=== PATIENT | male | born 1980 | race Hispanic/Latino ===

== ENCOUNTER 2017-04-26 12:06 | Emergency (ER) | payer OTHER ==
[~2017-04-26] VITALS: Ht 175.3 cm; Wt 120.0 kg
[2017-04-26] MEDS ORDERED: ADDE20CA3 PO (12:13)
[2017-04-26] MEDS ORDERED: ONDANSETRON 4MG/2ML VIAL (J2405) IV ONE (12:45)
[2017-04-26] MEDS ORDERED: MORPHINE 4 MG/ML 1ML SYRINGE IV ONE ×2 (12:45→13:45)
--- NOTE | 2017-04-26 13:51 | REP ---
Clinical: Trauma. Technique: AP, lateral views of the left knee. Findings: The osseous structures and joint spaces are intact and there is no evidence for acute fracture or dislocation. Mild degenerative changes includes creased sclerosis to the medial tibial surface with mild joint space narrowing. Impression: Mild medial joint space narrowing and degenerative change. No acute fracture or dislocation. Signed by Dl Grier MD 04/26/2017 01:42 P
--- NOTE | 2017-04-26 13:52 | REP ---
Clinical: Trauma. Technique: AP, lateral left tibia / fibula. Findings: The osseous structures and joint spaces are intact and there is no evidence for acute fracture or dislocation. Surrounding soft tissues are unremarkable. No subcutaneous emphysema or radiodense foreign body. Impression: Age appropriate examination . No acute fracture or dislocation. Signed by Dl Grier MD 04/26/2017 01:43 P
--- NOTE | 2017-04-26 13:53 | REP ---
Clinical: Trauma. Technique: Neutral and frog lateral views of the left femur. Findings: No acute fracture dislocation. Skeletal structures, joint spaces, and surrounding soft tissues appear normal. Impression: No acute fracture dislocation. Signed by Dl Grier MD 04/26/2017 01:44 P
--- NOTE | 2017-04-26 13:54 | REP ---
Clinical: Trauma. Technique: Single AP view of the pelvis. Findings: No acute fracture dislocation. Skeletal structures, joint spaces, and surrounding soft tissues are relatively normal for age. Mild symmetric degenerative changes of the hip cannot be excluded. Impression: No acute fracture dislocation. Signed by Dl Grier MD 04/26/2017 01:45 P
--- NOTE | 2017-04-26 13:57 | REP ---
Clinical: Trauma. Left hip pain. Technique: Axial noncontrast images of the pelvis with coronal and sagittal re-formations. Findings: The osseous structures of the pelvis are intact. There is no evidence for acute fracture or dislocation. The bilateral sacroiliac joints are normal. The bilateral hip joints demonstrate mild degenerative changes including subtle increase sclerosis to the acetabular roof with minimal joint space narrowing and subtle marginal spurring. No acute fracture or dislocation. Surrounding soft tissues are unremarkable and without subcutaneous infiltration or hematoma to suggest soft tissue injury. Visualized portions of the small large bowel are unremarkable. Pelvis demonstrates normal bladder and age appropriate prostate/seminal vesicles. No pelvic fluid. No free air. No obvious adenopathy. Abdominal aorta and vasculature appears normal. Impression: Normal noncontrast CT of the pelvis. No evidence for acute fracture or dislocation. Signed by Dl Grier MD 04/26/2017 01:48 P
[2017-04-26 16:28] VITALS: BP 149/80
[2017-04-26] MEDS ORDERED: HYDR-3713 PO (16:42)
[2017-04-26] MEDS ORDERED: PERCOCET 5MG/325MG TAB PO ONE (17:00)
--- NOTE | 2017-04-28 16:03 | REPUSA ---
HISTORY: -TRAUMA WITH PAIN A AND SWELLING XRAY REPORT SENT. Comparison is made to a report of left knee films dated 04/26/17. TECHNIQUE: Multisequence, multiplanar MRI imaging of left knee without contrast. FINDINGS: There is bone marrow edema posteriorly in the medial tibial plateau consistent with bone bruise. No bony fracture line is seen. No joint space instability is seen. There is a complete complex tear in the posterior horn of the medial meniscus extending obliquely to the inferior articular margin and more posteriorly a vertical tear extending from the superior to the inferior articular margin. This is best seen on the T2 STIR sagittal sequence series 4, images 5-9. There is also a macerated tear at the posterior horn of the lateral meniscus at the inferior articu lar margins seen on series 4, image 20. The same T2, STIR sagittal sequence demonstrates suspected complete tear in the posterior anterior cr uciate ligament with a downward slope at the posterior margin of the ligament and edema, seen on seri es 4, images 13-14. The posterior cruciate ligament is intact but buckled. There appears to be a sl ight anterior translation of the tibia upon the femur. There is excessive edema over the medial collateral ligamentous region with complete grade 3 tear of the medial collateral ligament, best seen on the coronal sequence, series 7, images 8-15. There is a lso excessive edema with a complete grade 3 tear at the superior margin of the lateral collateral lig aments, best seen on series 7, images 11-18. The quadriceps tendon and infrapatellar tendon are intact. There is a large joint space effusion. Articular cartilage is intact. There is a focal tear at the attachment of the lateral head of the gastrocnemius tendon at the title clerk ior distal femur, best seen on the T2 STIR sagittal sequence series 4, images 18-22. There is also edema in the proximal soleus muscle consistent with muscular strain. There is edema at the distal bi ceps femoris muscular tendinous junction also suspicious for partial tendon tear and muscular strain. There is prominent soft tissue contusion over the entire lateral margin of the left knee. IMPRESSION: 1. Bone marrow bruising at the medial posterior tibial plateau. No bony fracture line i s seen and no dislocation is seen. 2. Complicated complex tear at the posterior horn of the medial meniscus and macerated tear at the p osterior horn of the lateral meniscus. 3. Suspected complete tear at the posterior superior margin of the anterior cruciate ligament. Post erior cruciate ligament is intact but buckled. There is also anterior translation of the tibia from the femur. 4. Complete grade 3 tear involving the medial collateral ligament with overlying soft tissue contus ion at the medial margin of the knee. 5. Extensive complete grade 3 tear involving the lateral collateral ligament with extensive contusio n of the soft tissues of the lateral knee and with suspected muscular tendinous tear and strains seen at the lateral head of the gastrocnemius muscle, soleus muscle, and distal attachment of the biceps femoris muscle. 6. Large joint space effusion with intact cartilage. Intact quadriceps and infrapatellar tendons.
== END 2017-04-26 16:54 | disposition home or self-care (01) ==
LOC: M ED 12:06 → EDBD 12:06 → M ED 16:54
DX: S83.412A Sprain of medial collateral ligament of left knee, initial encounter (principal); W11.XXXA Fall on and from ladder, initial encounter; Y92.89 Other specified places as the place of occurrence of the external cause; Y93.89 Activity, other specified; Y99.0 Civilian activity done for income or pay
CPT/HCPCS: 72190; 72192; 73552; 73560; 73590; 73721; 96374; 96375; 96376; 99284; J2405

== ENCOUNTER → 2018-01-02 | Outpatient (CLI) | payer OTHER | LOC: M CARPUL 08:21 | DX: E11.8 Type 2 diabetes mellitus with unspecified complications (principal) | CPT/HCPCS: 93306 ==

== ENCOUNTER 2021-06-10 10:18 | Emergency (ER) | payer OTHER ==
[~2021-06-10] VITALS: Ht 175.3 cm; Wt 114.4 kg
[~2021-06-10 10:18] MED LIST: ADDE20CA3 PO; HYDR-3713 PO
[2021-06-10] MEDS ORDERED: LANTINJ4 SC ×2 (10:26→10:30)
[2021-06-10] MEDS ORDERED: BACL10TA2 PO (10:30)
[2021-06-10] MEDS ORDERED: LOPI600T PO (10:30)
[2021-06-10] MEDS ORDERED: OXYC-1 PO (10:30)
[2021-06-10] MEDS ORDERED: NESI25TA PO (10:30)
[2021-06-10] MEDS ORDERED: CELE1CAP4 PO (10:30)
[2021-06-10] MEDS ORDERED: FAMO40TA3 PO (10:30)
[2021-06-10] MEDS ORDERED: METO1TAB33 PO (10:30)
[2021-06-10] MEDS ORDERED: ROSU40TA4 PO (10:30)
[2021-06-10] MEDS ORDERED: LISI10TA22 PO (10:30)
[2021-06-10] MEDS ORDERED: OMEP-312 PO (10:30)
[2021-06-10] MEDS ORDERED: JARD1TAB3 PO (10:30)
[2021-06-10 13:01] VITALS: BP 138/73
== END 2021-06-10 13:20 | disposition home or self-care (01) ==
LOC: M ED 10:18
DX: M46.1 Sacroiliitis, not elsewhere classified (principal); E11.9 Type 2 diabetes mellitus without complications; Z79.899 Other long term (current) drug therapy; Z79.4 Long term (current) use of insulin; F17.210 Nicotine dependence, cigarettes, uncomplicated

== ENCOUNTER → 2022-10-12 | Outpatient (REF) | payer OTHER ==
[~2022-10-12] MED LIST changes: +BACL10TA2 PO; +CELE1CAP4 PO; +FAMO40TA3 PO; +JARD1TAB3 PO; +LANTINJ4 SC; +LISI10TA22 PO; +LOPI600T PO; +METO1TAB33 PO; +NESI25TA PO; +OMEP-312 PO; +OXYC-1 PO; +ROSU40TA4 PO
== END ==
LOC: M SFHCPLAZ 16:57
PROVIDERS: ATTEND Physician Assistant
DX: R05.1 Acute cough (principal)
CPT/HCPCS: 87428; 87635; G0463

== ENCOUNTER → 2022-11-10 | Outpatient (CLI) | payer OTHER ==
[2022-11-10 17:22] LABS: HEMATOCRIT 44.2 % (42.0-52.0); HEMOGLOBIN 14.7 g/dl (13.5-17.5); MEAN CORPUSCULAR HEMOGLOBIN 32.6 pg (27.0-33.0); MEAN CORPUSCULAR HGB CONC 33.3 g/dl (32.0-36.5); PLATELET COUNT, AUTOMATED 191 10^3/uL (150-450); RED BLOOD COUNT 4.51 10^6/uL (4.30-6.10); WHITE BLOOD COUNT 8.6 10^3/uL (4.0-10.0)
[2022-11-10 17:46] LABS: CREATININE, URINE 37.8 MG/DL
[2022-11-10 17:47] LABS: C REACTIVE PROTEIN QUANTITATIV < 0.40 MG/DL (<1.0)
[2022-11-10 18:16] LABS: ALBUMIN 4.1 G/DL (3.2-5.2); ALKALINE PHOSPHATASE 75 U/L (46-116); ALT/SGPT 23 U/L (7.0-40); AST/SGOT 15 U/L (<34); BILIRUBIN,TOTAL 0.4 MG/DL (0.3-1.2); BLOOD UREA NITROGEN 14 MG/DL (9-23); CALCIUM LEVEL 8.9 MG/DL (8.5-10.1); CARBON DIOXIDE LEVEL 30 MMOL/L (20-31); CHLORIDE LEVEL 100 MMOL/L (98-107); CHOLESTEROL LEVEL 111 MG/DL (<200); CHOLESTEROL RISK RATIO 3.72 (<5); CREATININE FOR GFR 0.58 MG/DL (0.70-1.30); FREE T4 1.18 NG/DL (0.89-1.76); GLOMERULAR FILTRATION RATE > 60.0 (>60); GLUCOSE, FASTING 192 MG/DL (60-100); HDL CHOLESTEROL 29.8 MG/DL (>40); NON-HDL-C 81 MG/DL; POTASSIUM SERUM 4.3 MMOL/L (3.5-5.1); SODIUM LEVEL 139 MMOL/L (136-145); THYROID STIMULATING HORMONE 1.205 uIU/ML (0.55-4.78); TOTAL 25(OH) VITAMIN D 28.8 NG/ML (20.0-100.0); TOTAL PROTEIN 7.3 G/DL (5.7-8.2); TRIGLYCERIDES LEVEL 420 MG/DL (<150); VITAMIN B12 LEVEL 533 PG/ML (211-911)
[2022-11-10 18:53] LABS: MALB URINE SIEMENS < 3.0 MG/DL; MAU/CREAT RATIO 7.9 MCG/MG (0.0-30.0)
[2022-11-12 14:08] LABS: INSULIN LEVEL 64.6 uIU/mL (2.6-24.9)
== END ==
LOC: M PLALAB 15:50
PROVIDERS: ATTEND Internal Medicine Hematology
DX: E11.9 Type 2 diabetes mellitus without complications (principal); E78.5 Hyperlipidemia, unspecified
CPT/HCPCS: 36415; 80053; 80061; 82043; 82306; 82607; 83036; 83525; 83695; 84439; 84443; 85027; 86140; G0463

== ENCOUNTER 2023-07-10 17:45 | Emergency (ER) | payer OTHER ==
[~2023-07-10] VITALS: Ht 175.3 cm; Wt 117.6 kg
[2023-07-10] MEDS ORDERED: TOUJ300I2 SC (17:53)
[2023-07-10] MEDS ORDERED: SEMA1PEN2 SQ (17:53)
[2023-07-10] MEDS ORDERED: METF-414 PO (17:54)
[2023-07-10] MEDS ORDERED: ADDE20CA3 PO (17:56)
[2023-07-10] MEDS ORDERED: BUSP15TA47 PO (17:56)
[2023-07-10] MEDS ORDERED: ZOLP5TAB (17:56)
[2023-07-10] MEDS ORDERED: BUPR150T12 PO (17:56)
[2023-07-10] MEDS ORDERED: KETOROLAC 30 MG/ML 1ML VIAL IV ONE (18:55)
[2023-07-10] MEDS ORDERED: AMPICILLIN SOD/SULBACTAM SOD 3 GM in D5W MINI-BAG PLUS 100 ML IV ONE (18:55)
[2023-07-10 19:46] LABS: BASO % 0.3 % (0.0-1.0); EOS # 0.1 10^3/uL (0.0-0.5); EOS % 1.3 % (0.0-3.0); HEMOGLOBIN 15.6 g/dl (13.5-17.5); LYMPH # 2.2 10^3/uL (1.5-5.0); LYMPH % 20.1 % (24.0-44.0); MEAN CORPUSCULAR HEMOGLOBIN 31.9 pg (27.0-33.0); MEAN CORPUSCULAR HGB CONC 33.9 g/dl (32.0-36.5); MEAN CORPUSCULAR VOLUME 94.1 fl (80.0-96.0); MONO # 1.3 10^3/uL (0.0-0.8); MONO % 11.6 % (2.0-8.0); NEUTROPHILS # 7.2 10^3/uL (1.5-8.5); NEUTROPHILS % 66.5 % (36.0-66.0); PLATELET COUNT, AUTOMATED 205 10^3/uL (150-450); RED BLOOD COUNT 4.89 10^6/uL (4.30-6.10); WHITE BLOOD COUNT 10.8 10^3/uL (4.0-10.0)
[2023-07-10] MEDS ORDERED: traMADol 50 MG TAB PO ONE (20:10)
[2023-07-10 20:11] LABS: ERYTHROCYTE SEDIMENTATION RATE 35 mm/hr (0-15)
[2023-07-10] MEDS ORDERED: ISOVUE-370 76% 100ML VIAL As Ordered ONE (20:12)
[2023-07-10] MEDS ORDERED: TRAM50TA2 PO (21:51)
[2023-07-10] MEDS ORDERED: AMOX500C PO (21:51)
[2023-07-10] MEDS ORDERED: traMADol 50 MG TAB (HOME DOSE PACK) PO ONE (21:55)
[2023-07-10 22:01] VITALS: BP 118/73; TEMP 96.7; O2SAT 98
[2023-07-10 23:43] LABS: HEPATITIS B CORE ANTIBODY IGM NEGATIVE (NEGATIVE)
[2023-07-10 23:44] LABS: HEPATITIS C VIRUS ABY INDEX 0.13 INDEX (<0.8)
== END 2023-07-10 22:22 | disposition home or self-care (01) ==
LOC: M ED 17:45
DX: K12.2 Cellulitis and abscess of mouth (principal); L03.211 Cellulitis of face; Z79.2 Long term (current) use of antibiotics; Z79.4 Long term (current) use of insulin; Z79.811 Long term (current) use of aromatase inhibitors; Z79.899 Other long term (current) drug therapy
CPT/HCPCS: 70487; 80047; 83605; 85025; 85652; 86140; 86705; 86709; 86803; 87040; 87340; 96365; 96375; 99283; J0295; J1885; Q9967

== ENCOUNTER → 2023-08-10 | Outpatient (REF) | payer OTHER ==
[~2023-08-10] MED LIST changes: +AMOX500C PO; +BUPR150T12 PO; +BUSP15TA47 PO; +METF-414 PO; +SEMA1PEN2 SQ; +TOUJ300I2 SC; +TRAM50TA2 PO; +ZOLP5TAB
[2023-08-10 18:14] LABS: BASO % 0.3 % (0.0-1.0); EOS # 0.1 10^3/uL (0.0-0.5); EOS % 1.5 % (0.0-3.0); HEMATOCRIT 46.6 % (42.0-52.0); HEMOGLOBIN 15.5 g/dl (13.5-17.5); LYMPH # 2.6 10^3/uL (1.5-5.0); LYMPH % 33.1 % (24.0-44.0); MEAN CORPUSCULAR HEMOGLOBIN 32.1 pg (27.0-33.0); MEAN CORPUSCULAR HGB CONC 33.3 g/dl (32.0-36.5); MEAN CORPUSCULAR VOLUME 96.5 fl (80.0-96.0); MONO # 0.8 10^3/uL (0.0-0.8); MONO % 9.9 % (2.0-8.0); NEUTROPHILS # 4.3 10^3/uL (1.5-8.5); NEUTROPHILS % 54.9 % (36.0-66.0); PLATELET COUNT, AUTOMATED 218 10^3/uL (150-450); RED BLOOD COUNT 4.83 10^6/uL (4.30-6.10); WHITE BLOOD COUNT 7.9 10^3/uL (4.0-10.0)
[2023-08-10 18:41] LABS: CREATININE, URINE 75.1 MG/DL; MAU/CREAT RATIO 10.6 MCG/MG (0.0-30.0)
[2023-08-10 18:42] LABS: ALBUMIN 4.3 G/DL (3.2-5.2); ALKALINE PHOSPHATASE 62 U/L (46-116); ALT/SGPT 38 U/L (7.0-40); AST/SGOT 22 U/L (<34); BILIRUBIN,TOTAL 0.6 MG/DL (0.3-1.2); BLOOD UREA NITROGEN 16 MG/DL (9-23); CALCIUM LEVEL 9.4 MG/DL (8.5-10.1); CARBON DIOXIDE LEVEL 29 MMOL/L (20-31); CHLORIDE LEVEL 106 MMOL/L (98-107); CHOLESTEROL LEVEL 96 MG/DL (<200); CHOLESTEROL RISK RATIO 3.14 (<5); CREATININE FOR GFR 0.54 MG/DL (0.70-1.30); GLOMERULAR FILTRATION RATE > 60.0 (>60); GLUCOSE, FASTING 100 MG/DL (60-100); HDL CHOLESTEROL 30.5 MG/DL (>40); LDL CHOLESTEROL 17.1 MG/DL (<100); NON-HDL-C 65.5 MG/DL; POTASSIUM SERUM 4.8 MMOL/L (3.5-5.1); SODIUM LEVEL 144 MMOL/L (136-145); TOTAL PROTEIN 7.5 G/DL (5.7-8.2); TRIGLYCERIDES LEVEL 242 MG/DL (<150)
[2023-08-10 19:16] LABS: HEMOGLOBIN A1c 7.2 % (4.0-6.0)
== END ==
LOC: M SFHCPLAZ 17:07
PROVIDERS: ATTEND Internal Medicine Hematology
DX: E11.9 Type 2 diabetes mellitus without complications (principal)

== ENCOUNTER → 2024-02-22 | Outpatient (CLI) | payer OTHER ==
[~2024-02-22] MED LIST changes: -ROSU40TA4 PO; +ROSU40TA63 PO
[2024-02-22 16:01] LABS: BASO % 0.2 % (0.0-1.0); EOS # 0.2 10^3/uL (0.0-0.5); EOS % 2.1 % (0.0-3.0); HEMATOCRIT 46.3 % (42.0-52.0); HEMOGLOBIN 15.4 g/dl (13.5-17.5); LYMPH # 2.8 10^3/uL (1.5-5.0); LYMPH % 31.5 % (24.0-44.0); MEAN CORPUSCULAR HEMOGLOBIN 32.2 pg (27.0-33.0); MEAN CORPUSCULAR HGB CONC 33.3 g/dl (32.0-36.5); MEAN CORPUSCULAR VOLUME 96.7 fl (80.0-96.0); MONO # 0.9 10^3/uL (0.0-0.8); NEUTROPHILS # 4.9 10^3/uL (1.5-8.5); PLATELET COUNT, AUTOMATED 202 10^3/uL (150-450); RED BLOOD COUNT 4.79 10^6/uL (4.30-6.10); WHITE BLOOD COUNT 8.8 10^3/uL (4.0-10.0)
[2024-02-22 16:31] LABS: CREATININE, URINE 56.4 MG/DL; MAU/CREAT RATIO 8.8 MCG/MG (0.0-30.0)
[2024-02-22 16:33] LABS: C REACTIVE PROTEIN QUANTITATIV < 0.40 MG/DL (<1.0)
[2024-02-22 16:35] LABS: ALBUMIN 4.4 G/DL (3.2-5.2); ALKALINE PHOSPHATASE 63 U/L (46-116); ALT/SGPT 25 U/L (7.0-40); AST/SGOT < 8 U/L (<34); BILIRUBIN,TOTAL 0.5 MG/DL (0.3-1.2); BLOOD UREA NITROGEN 11 MG/DL (9-23); CALCIUM LEVEL 9.5 MG/DL (8.5-10.1); CARBON DIOXIDE LEVEL 30 MMOL/L (20-31); CHLORIDE LEVEL 105 MMOL/L (98-107); CHOLESTEROL LEVEL 109 MG/DL (<200); CREATININE FOR GFR 0.57 MG/DL (0.70-1.30); FERRITIN 31.9 NG/ML (10.5-307.3); FREE T4 1.15 NG/DL (0.89-1.76); GLOMERULAR FILTRATION RATE > 60.0 (>60); GLUCOSE, FASTING 147 MG/DL (60-100); LDL CHOLESTEROL 38.4 MG/DL (<100); POTASSIUM SERUM 4.8 MMOL/L (3.5-5.1); SODIUM LEVEL 140 MMOL/L (136-145); THYROID STIMULATING HORMONE 0.645 uIU/ML (0.55-4.78); TOTAL 25(OH) VITAMIN D 31.8 NG/ML (20.0-100.0); TOTAL PROTEIN 7.2 G/DL (5.7-8.2); TRIGLYCERIDES LEVEL 193 MG/DL (<150)
[2024-02-22 16:37] LABS: VITAMIN B12 LEVEL 446 PG/ML (211-911)
[2024-02-22 16:57] LABS: HEMOGLOBIN A1c 6.5 % (4.0-6.0)
== END ==
LOC: M PLALAB 13:59
PROVIDERS: ATTEND Internal Medicine Hematology
DX: E11.9 Type 2 diabetes mellitus without complications (principal); K92.1 Melena

== ENCOUNTER → 2024-08-14 | Outpatient (CLI) | payer OTHER ==
[~2024-08-14] MED LIST changes: -ROSU40TA63 PO; +ROSU40TA81 PO
[2024-08-14 19:36] LABS: BASO % 0.4 % (0.0-1.0); EOS # 0.2 10^3/uL (0.0-0.5); HEMATOCRIT 47.6 % (42.0-52.0); HEMOGLOBIN 15.8 g/dl (13.5-17.5); LYMPH # 2.2 10^3/uL (1.5-5.0); LYMPH % 25.7 % (24.0-44.0); MEAN CORPUSCULAR HEMOGLOBIN 32.4 pg (27.0-33.0); MEAN CORPUSCULAR HGB CONC 33.2 g/dl (32.0-36.5); MEAN CORPUSCULAR VOLUME 97.5 fl (80.0-96.0); MONO # 0.9 10^3/uL (0.0-0.8); MONO % 10.4 % (2.0-8.0); NEUTROPHILS # 5.1 10^3/uL (1.5-8.5); NEUTROPHILS % 61.1 % (36.0-66.0); PLATELET COUNT, AUTOMATED 245 10^3/uL (150-450); RED BLOOD COUNT 4.88 10^6/uL (4.30-6.10); WHITE BLOOD COUNT 8.4 10^3/uL (4.0-10.0)
[2024-08-14 19:40] LABS: HEMOGLOBIN A1c 6.9 % (4.0-6.0)
[2024-08-14 19:46] LABS: THYROID STIMULATING HORMONE 1.133 uIU/ML (0.55-4.78)
[2024-08-14 19:50] LABS: FREE T4 1.31 NG/DL (0.89-1.76)
[2024-08-14 19:52] LABS: C REACTIVE PROTEIN QUANTITATIV < 0.40 MG/DL (<1.0)
[2024-08-14 19:54] LABS: ALBUMIN 4.2 G/DL (3.2-5.2); ALKALINE PHOSPHATASE 75 U/L (46-116); ALT/SGPT 23 U/L (7.0-40); AST/SGOT 11 U/L (<34); BILIRUBIN,TOTAL 0.4 MG/DL (0.3-1.2); BLOOD UREA NITROGEN 16 MG/DL (9-23); CALCIUM LEVEL 9.6 MG/DL (8.5-10.1); CARBON DIOXIDE LEVEL 26 MMOL/L (20-31); CHLORIDE LEVEL 108 MMOL/L (98-107); CHOLESTEROL LEVEL 130 MG/DL (<200); CHOLESTEROL RISK RATIO 4.83 (<5); CREATININE FOR GFR 0.58 MG/DL (0.70-1.30); GLOMERULAR FILTRATION RATE > 60.0 (>60); GLUCOSE, FASTING 171 MG/DL (60-100); HDL CHOLESTEROL 26.9 MG/DL (>40); LDL CHOLESTEROL 32.9 MG/DL (<100); NON-HDL-C 103.1 MG/DL; POTASSIUM SERUM 4.6 MMOL/L (3.5-5.1); SODIUM LEVEL 142 MMOL/L (136-145); TOTAL PROTEIN 7.4 G/DL (5.7-8.2); TRIGLYCERIDES LEVEL 351 MG/DL (<150)
[2024-08-14 20:02] LABS: VITAMIN B12 LEVEL 482 PG/ML (211-911)
== END ==
LOC: M PLALAB 14:21
PROVIDERS: ATTEND Internal Medicine Hematology
DX: E11.9 Type 2 diabetes mellitus without complications (principal)

== ENCOUNTER → 2024-08-22 | Outpatient (REF) | payer OTHER | LOC: M SFHCPLAZ 12:53 | PROVIDERS: ATTEND Internal Medicine Hematology | DX: R07.89 Other chest pain (principal) ==

== ENCOUNTER 2024-10-06 17:55 | Emergency (ER) | payer OTHER ==
[~2024-10-06] VITALS: Ht 165.1 cm; Wt 115.2 kg
[2024-10-06 18:04] VITALS: BP 131/79; TEMP 98.4; O2SAT 98
[2024-10-06] MEDS ORDERED: PANT40TA29 PO (18:22)
[2024-10-06] MEDS ORDERED: ZOLP10TA2 (18:22)
[2024-10-06] MEDS ORDERED: ROSU10TA61 (18:22)
[2024-10-06] MEDS ORDERED: SYNJ1TAB15 PO (18:22)
[2024-10-06] MEDS ORDERED: AZIT-12 PO (21:45)
[2024-10-06] MEDS ORDERED: PRED20TA PO (21:45)
[2024-10-06] MEDS: ALBUTEROL 90 MCG/ACT 8GM HFA INHALER INH ONE (21:51)
[2024-10-06] MEDS: predniSONE 20 MG TAB PO ONE (21:52)
[2024-10-06] MEDS: AZITHROMYCIN 250MG TABLET PO ONE (21:52)
== END 2024-10-06 21:56 | disposition home or self-care (01) ==
LOC: M ED 17:55
DX: J20.9 Acute bronchitis, unspecified (principal); E11.9 Type 2 diabetes mellitus without complications; I10 Essential (primary) hypertension; E78.5 Hyperlipidemia, unspecified; M54.50 Low back pain, unspecified; F17.200 Nicotine dependence, unspecified, uncomplicated; Z79.4 Long term (current) use of insulin; Z79.899 Other long term (current) drug therapy
CPT/HCPCS: 87486; 87581; 87633; 87798; 99284; J7512